=== PATIENT | female | born 1970 | race African-American/Black ===

== ENCOUNTER 2017-05-06 00:46 | Emergency (ER) | payer SELFPAY ==
[2017-05-06] MEDS ORDERED: Sodium Chloride 0.9% 1,000 ML ONE ×2 (01:28→02:03)
[2017-05-06 01:44] LABS: ALT (SGPT) 64 U/L (8-55); AST (SGOT) 174 U/L (5-34); Albumin 3.3 g/dL (3.5-5.0); Alcohol 268 mg/dL (Less than 10); Alkaline Phosphatase 151 U/L (40-150); Anion Gap 16 mmol/L (10-20); BUN (Urea Nitrogen) 5 mg/dL (7.0-18.7); Bilirubin, Total 0.5 mg/dL (0.2-1.2); Calc. Creatinine Clearance 0 mL/min (70-130); Calcium 8.4 mg/dL (7.8-10.44); Carbon Dioxide 19 mmol/L (22-29); Chloride 109 mmol/L (98-107); Estimated GFR-MDRD Greater than 90; Globulin 5.1 g/dL (2.4-3.5); Glucose 101 mg/dL (70-105); Potassium 3.1 mmol/L (3.5-5.1); Protein, Total 8.4 g/dL (6.0-8.3); Sodium 141 mmol/L (136-145)
[2017-05-06 01:45] LABS: #Basophils 0.1 thou/uL (0.0-0.2); #Eosinphils 0.1 thou/uL (0.0-0.7); #Lymphocytes 1.8 thou/uL (1.20-3.40); #Monocytes 0.5 thou/uL (0.11-0.59); #Neutrophils 4.1 thou/uL (1.40-6.50); %Basophils 1.8 % (0.0-1.0); %Eosinophils 2.1 % (0.0-10.0); %Lymphocytes 27.2 % (21.0-51.0); %Monocytes 7.1 % (0.0-10.0); %Neutrophils 61.9 % (42.0-75.0); Hemoglobin 8.8 g/dL (12.0-16.0); Hypochromia MARKED = >30 cells (100X) (0-5/hpf); MDiff Complete? YES; Mean Corpuscular HGB CONC 28.3 g/dL (32.0-36.0); Mean Corpuscular Hemoglobin 17.2 pg (27.0-31.0); Mean Corpuscular Volume 60.8 fl (81.0-99.0); Mean Platelet Volume 7.7 fL (7.4-10.4); Microcytosis MARKED = >30 cells (100X) (0-5/hpf); PLT Morphology Comment Appears Adequate; Platelet Count 353 thou/uL (130-400); Polychromasia SLIGHT = 2-3 cells (100X) (0-2/hpf); Red Blood Cell (RBC) Count 5.12 mill/uL (4.20-5.40); Target Cells MODERATE= 6-15 cells (100X) (0-1/hpf); White Blood Cell (WBC) Count 6.6 thou/uL (4.8-10.8)
[2017-05-06 01:47] LABS: CKMB 1.6 ng/mL (0-6.6); Troponin I 0.011 ng/mL (< 0.028)
[2017-05-06] MEDS ORDERED: Potassium Chloride 20 MEQ TAB ONE (01:51)
--- NOTE | 2017-05-06 08:37 | RAD ---
RADIOGRAPH CHEST 2 VIEWS: HISTORY: A 46-year-old female with generalized weakness. FINDINGS: There is no air space density, pulmonary edema, pleural effusion, pneumothorax, or cardiomegaly. IMPRESSION: No acute cardiopulmonary findings. jn [] POS: [facility]
== END 2017-05-06 02:50 | disposition home or self-care (01) ==
LOC: NAV ERS 00:46
DX: D50.9 Iron deficiency anemia, unspecified (principal); E87.6 Hypokalemia; F10.120 Alcohol abuse with intoxication, uncomplicated; F17.210 Nicotine dependence, cigarettes, uncomplicated; L90.5 Scar conditions and fibrosis of skin; T22.00XS Burn of unspecified degree of shoulder and upper limb, except wrist and hand, unspecified site, sequela; Y90.8 Blood alcohol level of 240 mg/100 ml or more
CPT/HCPCS: 71020; 80053; 80307; 82553; 83880; 84484; 85025; 86850; 86900; 86901; 93005; 96360; J7050

== ENCOUNTER 2024-09-16 17:06 | Emergency (ER) | payer SELFPAY ==
[2024-09-16] MEDS ORDERED: Acetaminophen 500 MG TAB ONE (17:48)
[2024-09-16 18:28] LABS: #Basophils 0.1 thou/uL (0.0-0.2); #Eosinophils 0.1 thou/uL (0.0-0.7); #Lymphocytes 1.3 thou/uL (1.20-3.40); #Monocytes 0.8 thou/uL (0.11-0.59); %Eosinophils 1.6 % (0.0-10.0); %Lymphocytes 20.3 % (21.0-51.0); %Monocytes 12.6 % (0.0-10.0); %Neutrophils 64.6 % (42.0-75.0); Hematocrit 51.7 % (36.0-47.0); Hemoglobin 16.6 g/dL (12.0-16.0); Mean Corpuscular HGB CONC 32.1 g/dL (32.0-36.0); Mean Corpuscular Volume 90.4 fl (78.0-98.0); Mean Platelet Volume 7.8 fL (7.4-10.4); Platelet Count 183 10x3/uL (130-400); RBC Distribution Width 12.6 % (11.5-14.5); Red Blood Cell (RBC) Count 5.72 mill/uL (4.20-5.40); White Blood Cell (WBC) Count 6.3 10x3/uL (4.8-10.8)
[2024-09-16 18:51] LABS: ALT (SGPT) 60 U/L (8-55); AST (SGOT) 96 U/L (5-34); Albumin 3.4 g/dL (3.5-5.0); Alkaline Phosphatase 221 U/L (40-110); Anion Gap 15 mmol/L (10-20); BUN (Urea Nitrogen) 7 mg/dL (9.8-20.1); Bilirubin, Total 0.7 mg/dL (0.2-1.2); Calc. Creatinine Clearance 0 mL/min (70-130); Calcium 9.4 mg/dL (7.8-10.44); Carbon Dioxide 21 mmol/L (22-29); Chloride 108 mmol/L (98-107); Estimated GFR 100; Globulin 5.4 g/dL (2.4-3.5); Glucose 82 mg/dL (70-105); Potassium 4.3 mmol/L (3.5-5.1); Protein, Total 8.8 g/dL (6.0-8.3); Sodium 140 mmol/L (136-145)
[2024-09-16 18:56] LABS: Troponin I Less than 0.010 ng/mL (< 0.028)
== END 2024-09-16 19:35 | disposition home or self-care (01) ==
LOC: NAV ERS 17:06
DX: M25.512 Pain in left shoulder (principal); F17.210 Nicotine dependence, cigarettes, uncomplicated
CPT/HCPCS: 36415; 71045; 80053; 83880; 84484; 85025; 93005